=== PATIENT | male | born 1980 | race Caucasian/White ===

== ENCOUNTER 2017-06-25 13:29 | Emergency (ER) | payer OTHER ==
[~2017-06-25] VITALS: Ht 175.3 cm; Wt 88.3 kg
[2017-06-25 13:33] VITALS: BP 143/98; PULSE 73; RESP 16; TEMP 99; O2SAT 97
--- NOTE | 2017-06-25 14:21 | PD ---
HPI Chief Complaint: Laceration/Skin Injury Time Seen by Provider: 13:40 Travel History International Travel<30 days: No Contact w/Intl Traveler<30days: No Traveled to known affect area: No History of Present Illness HPI 37-year-old male presents emergency department for evaluation of laceration to left hand. Patient reports while at work he cut his hand on a cutting knife. He reports normal sensation, strength, range of motion in the hand. He reports pain at the site, nonradiating, no aggravating or alleviating factors. Severity 4/10. He denies numbness/tingling this weakness in the family. Bleeding is well-controlled. Tetanus immunization unknown PFSH Past Medical History Medical History: Denies Significant Hx Tetanus Vaccination: Unknown Influenza Vaccination: No Past Surgical History Surgical History: No Previous Surgery Social History Alcohol Use: Yes (occ) Tobacco Use: Yes (1ppd) Substance Use: No Allergies-Medications (Allergen,Severity, Reaction): Coded Allergies: Penicillins (Verified Allergy, Severe, Anaphylaxis, 06/25/17) Reported Meds & Prescriptions Reported Meds & Active Scripts Active No Active Prescriptions or Reported Medications Review of Systems Except as stated in HPI: all other systems reviewed are Neg Physical Exam Narrative GENERAL: Well-nourished, well-developed patient. SKIN: Focused skin assessment warm/dry. There is intermittent laceration left hand. HEAD: Normocephalic. EYES: No scleral icterus. No injection or drainage. NECK: Supple, trachea midline. No JVD or lymphadenopathy. CARDIOVASCULAR: Regular rate and rhythm without murmurs, gallops, or rubs. RESPIRATORY: Breath sounds equal bilaterally. No accessory muscle use. GASTROINTESTINAL: Abdomen soft, non-tender, nondistended. MUSCULOSKELETAL: No cyanosis, or edema. Left hand: 3 cm laceration to the left palm at the base of the thumb. No tendon or vascular injury identified. No foreign body identified. Patient has full range of motion and normal sensation of the hand and all digits. 2+ radial pulse. Brisk cap refill. Data Data Last Documented VS Vital Signs Date Time Temp Pulse Resp B/P (MAP) Pulse Ox O2 Delivery O2 Flow Rate FiO2 06/25/17 13:33 99.0 73 16 143/98 (113) 97 MDM Medical Decision Making Medical Screen Exam Complete: Yes Emergency Medical Condition: Yes Differential Diagnosis Hand laceration, tendon laceration, vascular injury Narrative Course 37-year-old male presents emergency department for evaluation of laceration to left hand. On exam patient has a 3 cm laceration to the left palm at the base of the thumb. There is no underlying vascular or tendon injury. No foreign body visualized. Patient has full range of motion, normal sensation of the hand and wrist and fingers. Brisk cap refill. Bleeding well controlled. The wound was repaired with sutures. Patient tolerated procedure well. Sutures are to be removed in 7-10 days. Tetanus immunization updated. Patient verbalizes understanding and agrees to plan Procedures Procedure Narrative LACERATION LOCATION: Left hand LENGTH: 3 cm NUMBER OF STITCHES/KRISS: 6 REPAIR: The area of the laceration was prepped with Betadine and sterilely draped. The laceration was infiltrated with 1% lidocaine. The wound was copiously irrigated and explored without evidence of foreign body, tendon injury or neurovascular injury. The wound was closed using 5-0 Ethilon. This was a [single] layer repair. A sterile dressing was applied. The patient was advised to keep the dressing clean and dry. Patient tolerated the procedure well. Diagnosis Primary Impression: Hand laceration Qualified Codes: S61.412A - Laceration without foreign body of left hand, initial encounter Referrals: Primary Care Physician Additional Instructions: Sutures need to be removed in 7-10 days. Do not submerge the wound in water. You may cleanse the area daily with soap and water and apply clean dressing. Return to the emergency department if he developed increasing pain, redness, drainage from the site Scripts No Active Prescriptions or Reported Meds Disposition: 01 DISCHARGE HOME Condition: Stable Nesha Zaldivar Jun 25, 2017 14:21
[2017-06-25] MEDS ORDERED: TETANUS/DIPHTHERIA TOXOID ADULT 0.5 ML VIAL IM ONE (14:30)
== END 2017-06-25 14:43 | disposition home or self-care (01) ==
LOC: PHEFT 13:29
DX: S61.412A Laceration without foreign body of left hand, initial encounter (principal); F17.200 Nicotine dependence, unspecified, uncomplicated; Z23 Encounter for immunization; W26.0XXA Contact with knife, initial encounter; Y99.0 Civilian activity done for income or pay
CPT/HCPCS: 12002; 90471; 90714

== ENCOUNTER 2017-06-28 15:46 | Emergency (ER) | payer SELFPAY ==
[~2017-06-28] VITALS: Ht 175.3 cm; Wt 88.2 kg
[2017-06-28 15:50] VITALS: BP 141/73; PULSE 89; RESP 16; TEMP 98.1; O2SAT 100
--- NOTE | 2017-06-28 16:28 | PD ---
HPI Chief Complaint: Wound/Suture/Staple Re-Check Time Seen by Provider: 16:03 Travel History International Travel<30 days: No Contact w/Intl Traveler<30days: No Traveled to known affect area: No History of Present Illness HPI 37-year-old male presents to the emergency room for wound recheck. Patient cut himself the knife 2 days ago and had a laceration repair on the left anterior wrist on the radial side. He had 6 sutures placed and was discharged with wound care sections. States he has been keeping it clean and dry and applying triple antibiotic ointment daily. Patient returns today because of worsening pain, swelling, and bruising to the area. States it is extremely painful to extend his hand all the way or to flex his wrist. He is not on blood thinners. He denies any purulent drainage, redness from the area. Denies fever, chills , nausea, and vomiting. PFSH Social History Alcohol Use: Yes (occ) Tobacco Use: Yes (1ppd) Substance Use: No Allergies-Medications (Allergen,Severity, Reaction): Coded Allergies: Penicillins (Verified Allergy, Severe, Anaphylaxis, 06/25/17) Reported Meds & Prescriptions Reported Meds & Active Scripts Active No Active Prescriptions or Reported Medications Review of Systems Except as stated in HPI: all other systems reviewed are Neg Physical Exam Narrative GENERAL: Well-nourished, well-developed male in no acute distress. Afebrile. Ambulatory. SKIN: Focused skin assessment warm/dry. There is a 2 cm well approximated healing laceration to the left distal wrist on the radial side. There is extreme surrounding ecchymosis extending all the way up to the proximal forearm. HEAD: Normocephalic. EYES: No scleral icterus. No injection or drainage. NECK: Supple, trachea midline. No JVD or lymphadenopathy. CARDIOVASCULAR: Regular rate and rhythm without murmurs, gallops, or rubs. RESPIRATORY: Breath sounds equal bilaterally. No accessory muscle use. GASTROINTESTINAL: Abdomen soft, non-tender, nondistended. MUSCULOSKELETAL: No cyanosis. Moderate edema of the left forearm. No significant tenderness to palpation around the wound. Full range of motion of the hand. There is pain with passive extension of the left hand. Pain with range of motion of the wrist. No pain with flexion of the left hand. 2+ radial pulse. Less than 2 second capillary refill distally. Data Data Last Documented VS Vital Signs Date Time Temp Pulse Resp B/P (MAP) Pulse Ox O2 Delivery O2 Flow Rate FiO2 06/28/17 15:50 98.1 89 16 141/73 (95) 100 [facility] Medical Decision Making Medical Screen Exam Complete: Yes Emergency Medical Condition: Yes Medical Record Reviewed: Yes Differential Diagnosis Developing compartment syndrome, hematoma, laceration, infection Narrative Course 37-year-old male presents to the emergency room for recheck of wound that he had sutured 2 days ago. At that time, the provider denied any neurovascular or tendon injury. Since then, he has had increasing swelling, bruising, and pain in the left upper arm. Physical exam reveals a 2 cm well approximated laceration to the left anterior wrist on the radial side. There is no purulent drainage, surrounding erythema, or lymphangitis. Patient has full range of motion of the left upper extremity but pain with passive extension. The compartments of the left upper extremity are soft. There is 2+ radial pulse. No pain out of proportion to exam. No distal paresthesias. Distal fingers are pink with less than 2 second capillary refill. No evidence of infection. I spoke to my attending physician, Dr. Callejas, who agrees that patient's compartments are soft and there is no concern for impending compartment syndrome at this time. Patient was placed in Velcro wrist splint in case of tendon injury and discharged with instructions to elevate the arm as much as possible. Patient was told to follow-up with a hand surgeon if symptoms persist or return for worsening symptoms. He understands and agrees to plan. Diagnosis Primary Impression: Traumatic ecchymosis of left upper arm Qualified Codes: S40.022A - Contusion of left upper arm, initial encounter Referrals: Hand Surgeon Primary Care Physician Additional Instructions: Rest and drink plenty of fluids. Keep wound clean and dry. Apply triple antibiotic ointment daily. Keep arm elevated above her heart as much as possible. Maintain range of motion of the hand by practicing simple exercises daily. Keep splint on until follow-up or suture removal. Apply ice to the affected area for 20 minutes at a time, as needed for pain and swelling. Follow-up with a primary care physician. Return to the emergency room for worsening symptoms. Scripts No Active Prescriptions or Reported Meds Disposition: 01 DISCHARGE HOME Condition: Stable Smiley Klein Jun 28, 2017 16:28
== END 2017-06-28 16:39 | disposition home or self-care (01) ==
LOC: PHEFT 15:46
DX: S40.022A Contusion of left upper arm, initial encounter (principal); S61.512D Laceration without foreign body of left wrist, subsequent encounter; F17.200 Nicotine dependence, unspecified, uncomplicated; X58.XXXA Exposure to other specified factors, initial encounter; X58.XXXD Exposure to other specified factors, subsequent encounter
CPT/HCPCS: 99281; L3908

== ENCOUNTER 2017-07-03 10:16 | Emergency (ER) | payer SELFPAY ==
[~2017-07-03] VITALS: Ht 172.7 cm; Wt 87.0 kg
[2017-07-03 10:25] VITALS: BP 132/84; PULSE 92; RESP 16; TEMP 97.4; O2SAT 96
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
== END 2017-07-03 10:54 | disposition home or self-care (01) ==
LOC: PHED 10:16
DX: Z48.02 Encounter for removal of sutures (principal)
CPT/HCPCS: 99281

== ENCOUNTER 2017-07-07 15:47 | Emergency (ER) | payer OTHER ==
[~2017-07-07] VITALS: Ht 172.7 cm; Wt 89.0 kg
[2017-07-07 15:55] VITALS: BP 144/80; PULSE 100; RESP 16; TEMP 99.3; O2SAT 97
--- NOTE | 2017-07-07 16:55 | PD ---
HPI Chief Complaint: Wound/Suture/Staple Re-Check Time Seen by Provider: 16:32 Travel History International Travel<30 days: No Contact w/Intl Traveler<30days: No Traveled to known affect area: No History of Present Illness HPI 37-year-old male presents to the emergency room for suture removal. Patient had 6 sutures placed 12 days ago. States he came back for wound recheck before and they removed some stitches and told him it was not ready yet. He denies any drainage, increased redness, increased pain. 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 Denies fever, chills, nausea, and vomiting. PFSH Past Medical History Medical History: Denies Significant Hx Diminished Hearing: No Tetanus Vaccination: < 5 Years Influenza Vaccination: No Past Surgical History Surgical History: No Previous Surgery Social History Alcohol Use: Yes (occ) Tobacco Use: Yes (1ppd) Substance Use: No Allergies-Medications (Allergen,Severity, Reaction): Coded Allergies: Penicillins (Verified Allergy, Severe, Anaphylaxis, 07/07/17) Reported Meds & Prescriptions Reported Meds & Active Scripts Active No Active Prescriptions or Reported Medications Review of Systems Except as stated in HPI: all other systems reviewed are Neg Physical Exam Narrative GENERAL: Well-nourished, well-developed male in no acute distress. Afebrile. Ambulatory. SKIN: Focused skin assessment warm/dry. There is a partially healed 1.5 cm laceration to the left volar wrist. No erythema, increased warmth, or drainage. HEAD: Normocephalic. EYES: No scleral icterus. No injection or drainage. NECK: Supple, trachea midline. No JVD or lymphadenopathy. CARDIOVASCULAR: Regular rate and rhythm without murmurs, gallops, or rubs. RESPIRATORY: Breath sounds equal bilaterally. No accessory muscle use. MUSCULOSKELETAL: No cyanosis, or edema. Full range of motion of the hand. Data Data Last Documented VS Vital Signs Date Time Temp Pulse Resp B/P (MAP) Pulse Ox O2 Delivery O2 Flow Rate FiO2 07/07/17 15:55 99.3 100 16 144/80 (101) 97 MDM Medical Decision Making Medical Screen Exam Complete: Yes Emergency Medical Condition: Yes Medical Record Reviewed: Yes Differential Diagnosis Laceration, suture removal, tendon injury Narrative Course 37-year-old male presents to the emergency room for suture removal. Patient had 6 sutures placed 12 days ago. There are 4 intact sutures. Wound is well approximated and not completely healed. Likely delayed healing secondary to smoking. Patient was encouraged to stop smoking. No evidence of infection. No indication for antibiotics at this time. Sutures were removed without difficulty and wound was reinforced with Steri-Strips and glue. Patient was discharged with wound care instructions and told to follow-up with a primary care physician or return for worsening symptoms. He understands and agrees to plan. Diagnosis Primary Impression: Visit for suture removal Referrals: Primary Care Physician Additional Instructions: Keep wound clean and dry. Steri-Strips and glue will fall off on their own. Scripts No Active Prescriptions or Reported Meds Disposition: 01 DISCHARGE HOME Condition: Stable Smiley Klein Jul 07, 2017 16:55
== END 2017-07-07 17:03 | disposition home or self-care (01) ==
LOC: PHEFT 15:47
DX: S61.512D Laceration without foreign body of left wrist, subsequent encounter (principal); Z48.02 Encounter for removal of sutures; X58.XXXD Exposure to other specified factors, subsequent encounter
CPT/HCPCS: 12001

== ENCOUNTER 2017-10-01 13:28 | Emergency (ER) | payer SELFPAY ==
[~2017-10-01] VITALS: Ht 170.2 cm; Wt 87.7 kg
[2017-10-01 13:34] VITALS: BP 141/85; PULSE 75; RESP 16; TEMP 98; O2SAT 97
--- NOTE | 2017-10-01 14:20 | PD ---
HPI Chief Complaint: Skin Problem Time Seen by Provider: 14:16 Travel History International Travel<30 days: No Contact w/Intl Traveler<30days: No Traveled to known affect area: No History of Present Illness HPI 37-year-old male presents the emergency department with question of ingrown toenail. Patient states painful red right toe for the past couple of days. Patient states the toenail itself fell off last evening and it feels better. There is no erythema or drainage currently. He is here to have it checked as he is worried about possible infection. He states no pain at this time. He is allergic to penicillin. [facility] Past Medical History Medical History: Denies Significant Hx Diminished Hearing: No Tetanus Vaccination: < 5 Years Past Surgical History Surgical History: No Previous Surgery Social History Alcohol Use: Yes (occ) Tobacco Use: Yes (1ppd) Substance Use: No Allergies-Medications (Allergen,Severity, Reaction): Coded Allergies: Penicillins (Verified Allergy, Severe, Anaphylaxis, 10/01/17) Reported Meds & Prescriptions Reported Meds & Active Scripts Active No Active Prescriptions or Reported Medications Review of Systems Except as stated in HPI: all other systems reviewed are Neg General / Constitutional: No: Fever Eyes: No: Visual changes HENT: No: Headaches Cardiovascular: No: Chest Pain or Discomfort Respiratory: No: Shortness of Breath Gastrointestinal: No: Abdominal Pain Genitourinary: No: Dysuria Musculoskeletal: No: Pain Skin: No Rash Neurologic: No: Weakness Psychiatric: No: Depression Endocrine: No: Polydipsia Hematologic/Lymphatic: No: Easy Bruising Physical Exam Narrative GENERAL: Patient appears no acute distress. SKIN: Warm and dry. Normal color. Normal turgor. Right great toe shows nail completely removed, with no signs of ongoing cellulitis or drainage. HEAD: Atraumatic. Normocephalic. EYES: Pupils equal and round. No scleral icterus. No injection or drainage. ENT: No nasal bleeding or discharge. Mucous membranes pink and moist. Pharynx is clear. Airway is patent. NECK: Trachea midline. Supple nontender. CARDIOVASCULAR: Regular rate and rhythm. RESPIRATORY: No accessory muscle use. Clear to auscultation. Breath sounds equal bilaterally. MUSCULOSKELETAL: Extremities without clubbing, cyanosis, or edema. No obvious deformities. NEUROLOGICAL: Awake and alert. No obvious cranial nerve deficits. Motor grossly within normal limits. Five out of 5 muscle strength in the arms and legs. Normal speech. PSYCHIATRIC: Appropriate mood and affect; insight and judgment normal. Data Data Last Documented VS Vital Signs Date Time Temp Pulse Resp B/P (MAP) Pulse Ox O2 Delivery O2 Flow Rate FiO2 10/01/17 13:34 98.0 75 16 141/85 (103) 97 MDM Medical Decision Making Medical Screen Exam Complete: Yes Emergency Medical Condition: No Differential Diagnosis Right great toe pain. Right great toe infection. Right great toe ingrown nail Narrative Course A medical screening exam was performed: At the time of evaluation the presenting medical condition was determined not to be of an emergent nature. The patient was given the option of receiving additional care, but declined. Patient was given options for additional community resources from which to obtain care. The Patient Has Been advised to seek medical attention for their presenting complaint. The patient has been advised to return to the ER at any time if an emergent condition develops. Scripts No Active Prescriptions or Reported Meds Condition: Maldonado Daley Oct 01, 2017 14:20
== END 2017-10-01 14:29 | disposition left against medical advice (07) ==
LOC: PHEFT 13:28
DX: L60.0 Ingrowing nail (principal)
CPT/HCPCS: 99281